=== PATIENT | male | born 1950 | race Caucasian/White ===

== ENCOUNTER 2022-01-21 09:37 | Emergency (ER) | payer OTHER ==
[~2022-01-21] VITALS: Ht 172.7 cm; Wt 75.3 kg
[2022-01-21] MEDS ORDERED: IPRATROPIUM NEB FS 0.5 MG/2.5 ML AMPUL.NEB NEB ONE (10:00)
[2022-01-21] MEDS ORDERED: ALBUTEROL FS 2.5 MG/3 ML VIAL.NEB CONTNEB ONE (10:00)
[2022-01-21] MEDS ORDERED: methylPREDNISolone SOD SUCC 125 MG/2ML VIAL IV ONE (10:00)
[2022-01-21] MEDS ORDERED: methylPREDNISolone SOD SUCC 125 MG/2ML VIAL ONE (10:02)
[2022-01-21] MEDS ORDERED: ALBUTEROL FS 2.5 MG/3 ML VIAL.NEB ONE (10:12)
[2022-01-21] MEDS ORDERED: IPRATROPIUM NEB FS 0.5 MG/2.5 ML AMPUL.NEB ONE (10:12)
[2022-01-21] MEDS ORDERED: AMLO-212 PO (10:25)
[2022-01-21] MEDS ORDERED: FINA5TAB11 PO (10:25)
[2022-01-21] MEDS ORDERED: FAMO40TA7 PO (10:25)
[2022-01-21] MEDS ORDERED: ATOR10TA PO (10:25)
[2022-01-21] MEDS ORDERED: TERB250T52 PO (10:25)
[2022-01-21] MEDS ORDERED: PROM118S5 PO (10:25)
[2022-01-21] MEDS ORDERED: TAMS-12 PO (10:25)
[2022-01-21] MEDS ORDERED: OLME20TA23 PO (10:25)
[2022-01-21] MEDS ORDERED: KERENDIA PO (10:25)
[2022-01-21] MEDS ORDERED: AZIT250T13 PO (10:25)
[2022-01-21] MEDS ORDERED: IPRA42SP NS (10:33)
--- NOTE | 2022-01-21 10:33 | NUR ---
MOVE SHEET SUBMITTED.
[2022-01-21 10:52] LABS: BASOPHILS % (AUTO) 0.6 % (0.0-2.0); EOSINOPHILS % (AUTO) 1.2 % (0.0-6.0); HEMATOCRIT 35 % (39-51); HEMOGLOBIN 11.3 g/dL (13.5-17.5); LYMPHOCYTES # (AUTO) 1.5 K/uL (0.8-4.8); LYMPHOCYTES % (AUTO) 22.7 % (20.0-44.0); MEAN CORPUSCULAR HGB CONC 32 g/dl (31.0-36.0); MEAN CORPUSCULAR VOLUME 86 fL (80-96); MONOCYTES # (AUTO) 0.7 K/uL (0.1-1.30); MONOCYTES % (AUTO) 9.8 % (2.0-12.0); NEUTROPHILS # (AUTO) 4.3 K/uL (1.8-8.9); NEUTROPHILS % (AUTO) 65.7 % (43.0-81.0); PLATELET COUNT (AUTO) 159 K/uL (150-450); RED BLOOD CELL COUNT(AUTO) 4.08 MIL/uL (4.5-6.0); WHITE BLOOD COUNT (AUTO) 6.6 K/uL (4.3-11.0)
[2022-01-21 11:29] LABS: ALANINE AMINOTRANSFERASE 17 U/L (12-78); ALBUMIN 3.5 g/dL (3.4-5.0); ALKALINE PHOSPHATASE 76 U/L (46-116); ASPARTATE AMINOTRANSFERASE 23 U/L (15-37); BILIRUBIN,DIRECT 0.1 mg/dL (0.0-0.2); BILIRUBIN,TOTAL 0.2 mg/dL (0.2-1.0); CARBON DIOXIDE 23 mmol/L (21-32); CHLORIDE 100 mmol/L (98-107); CREATININE 1.9 mg/dL (0.6-1.3); GLUCOSE 116 mg/dL (74-106); POTASSIUM 4.4 mmol/L (3.5-5.1); SODIUM SERUM 132 mmol/L (136-145); TOTAL PROTEIN, SERUM 7.2 g/dL (6.4-8.2); UREA NITROGEN, BLOOD 21 mg/dL (7-18)
--- NOTE | 2022-01-21 11:48 | NUR ---
MADELINE [phone] REQUSTING CLINICALS TO [phone]
--- NOTE | 2022-01-21 12:03 | NUR ---
BED GIVEN 105
[2022-01-21 12:25] LABS: CALCIUM, SERUM 8.9 mg/dL (8.5-10.1)
--- NOTE | 2022-01-21 12:56 | NUR ---
MD SPOKE TO [employer] SUPERVISOR FROM [facility], PATIENT TO BE TRANSFERRED. EXPLAINED RISKS
--- NOTE | 2022-01-21 14:00 | NUR ---
Leo Downs CM. .
--- NOTE | 2022-01-21 14:59 | NUR ---
IMAGING CS AND REPORT ATTACHED TO CHART.
--- NOTE | 2022-01-21 18:17 | NUR ---
FAXED FACE SHEET TO [phone]
--- NOTE | 2022-01-21 19:40 | NUR ---
s/w mary from [facility] [address] accepting bed 26a report [phone] ext [phone] transport auth for [facility] # [id number]
[2022-01-21 20:16] VITALS: BP 116/56
--- NOTE | 2022-01-21 20:21 | NUR ---
[facility] [phone] ETA FOR TRANSFER IS 2049 PER ROBERTA
--- NOTE | 2022-01-21 20:28 | NUR ---
Called [facility] for report. Awaiting call back to endorse PT to NELDA
--- NOTE | 2022-01-21 20:36 | NUR ---
REPORT GIVEN TO GALO FROM [facility] FOR DAIJA.
--- NOTE | 2022-01-21 20:56 | NUR ---
REPORT GIVEN TO [facility] EMT FOR PT TO TRANSFER TO [facility]
== END 2022-01-21 20:56 | disposition short-term general hospital (02) ==
LOC: ER 09:38
DX: J44.1 Chronic obstructive pulmonary disease with (acute) exacerbation (principal); Z20.822 Contact with and (suspected) exposure to COVID-19; I10 Essential (primary) hypertension; E78.5 Hyperlipidemia, unspecified; R22.1 Localized swelling, mass and lump, neck; Z79.899 Other long term (current) drug therapy
CPT/HCPCS: 36415; 71045; 80048; 80076; 83605; 83880; 84484 ×3; 85025; 87040 ×2; 87081; 87426; 87804; 93005; 94640; 96374; 99291; J2930; C9803; U0003